=== PATIENT | male | born 1975 | race African-American/Black ===

== ENCOUNTER 2019-04-19 01:43 | Emergency (ER) | payer SELFPAY ==
[~2019-04-19] VITALS: Ht 190.5 cm; Wt 121.0 kg
--- NOTE | 2019-04-19 02:36 | NUR ---
pt to room from lobby
[2019-04-19 02:44] VITALS: BP 138/90
[2019-04-19] MEDS ORDERED: DEXAMETHASONE 4 MG/ML, 1ML ONE (02:50)
[2019-04-19] MEDS ORDERED: ONDANSETRON ODT 4 MG ONE (02:50)
[2019-04-19] MEDS ORDERED: OXYcodone/APAP 5/325MG TABLET ONE (02:51)
[2019-04-19] MEDS ORDERED: KETOROLAC 60 MG/2 ML ONE (02:51)
[2019-04-19] MEDS ORDERED: OXYcodone/APAP 5/325MG TABLET PO ONE (03:00)
[2019-04-19] MEDS ORDERED: ONDANSETRON ODT 4 MG PO ONE (03:00)
[2019-04-19] MEDS ORDERED: DEXAMETHASONE 4 MG/ML, 1ML PO ONE (03:00)
[2019-04-19] MEDS ORDERED: PLEASE ENTER ALLERGIES MC SCH (03:00)
[2019-04-19] MEDS ORDERED: KETOROLAC 30 MG/1 ML IM ONE (03:00)
== END 2019-04-19 03:43 | disposition home or self-care (01) ==
LOC: ED 03:35
DX: J02.8 Acute pharyngitis due to other specified organisms (principal); B34.9 Viral infection, unspecified; I10 Essential (primary) hypertension; F17.200 Nicotine dependence, unspecified, uncomplicated
CPT/HCPCS: 87081; 87147; 87880; 96372; 99284; J1100; J1885; Q0162

== ENCOUNTER 2019-04-22 12:19 | Emergency (ER) | payer SELFPAY ==
[~2019-04-22] VITALS: Ht 190.5 cm; Wt 118.0 kg
--- NOTE | 2019-04-22 13:09 | NUR ---
THIS IS A 43 YO M W/ C/O THROAT SWELLING AND DIFFICULTY SWALLOWING. PT REPORTS BEING SEEN LAST WEEK FOR SAME SYMPTOMS. PT REPORTS HE WAS FEELING BETTER OVER THE WEEKEND BUT WOKE UP THIS MORNING UNABLE TO SPEAK. PT DENIES SOB. VS STABLE. PT CONVERSING IN FULL SENTENCES W/O DIFFICULTY. PT STATES THAT HE WOULD LIKE TO BE OUT OF HERE BY 3PM. EDUCATED THAT WE COULD NOT GUARANTEE THIS. CONNECTED TO MONITORING. CALL LIGHT IN [place]. DENIES FURTHER NEEDS AT THIS TIME.
[2019-04-22] MEDS ORDERED: DEXAMETHASONE 4 MG TABLET PO ONE (13:30)
[2019-04-22] MEDS ORDERED: DEXAMETHASONE 4 MG TABLET ONE (13:48)
[2019-04-22 13:52] VITALS: BP 161/98
== END 2019-04-22 14:00 | disposition home or self-care (01) ==
LOC: ED 13:54
DX: J02.0 Streptococcal pharyngitis (principal); I10 Essential (primary) hypertension
CPT/HCPCS: 99283

== ENCOUNTER 2019-05-03 19:51 | Emergency (ER) | payer OTHER, SELFPAY ==
[~2019-05-03] VITALS: Ht 190.5 cm; Wt 121.8 kg
--- NOTE | 2019-05-03 20:25 | NUR ---
Pt presents to room stating he woks at [facility] and that his work put out an anouncement today stating anyone who feels symptoms of a virus need to go in and be evaluated. Pt denies any new symptoms for the past 2 weeks. Pt reports cough with sore throat and nasal congestion. Pt states he has been taking Mucinex for his symptoms but they persist.
[2019-05-03 21:04] LABS: RAPID INFLUENZA A Negative (Negative); RAPID INFLUENZA B Negative (Negative)
[2019-05-03 22:16] VITALS: BP 171/96
== END 2019-05-03 22:18 | disposition home or self-care (01) ==
LOC: ED 21:40
DX: J06.9 Acute upper respiratory infection, unspecified (principal); Z20.828 Contact with and (suspected) exposure to other viral communicable diseases; I10 Essential (primary) hypertension
CPT/HCPCS: 71045; 87400; 87486; 87581; 87633; 87798; 99284